=== PATIENT | male | born 1965 | race Caucasian/White ===

== ENCOUNTER 2024-05-20 10:27 | Outpatient (AMB) | payer MEDICAID, SELFPAY ==
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
== END 2024-05-20 12:20 | disposition home or self-care (01) ==
LOC: HODAHC 10:27
PROVIDERS: Supervising Provider Internal Medicine; Visit Provider Student in an Organized Health Care Education/Training Program
DX: I10 Essential (primary) hypertension (principal); Z86.73 Personal history of transient ischemic attack (TIA), and cerebral infarction without residual deficits; Z76.0 Encounter for issue of repeat prescription
CPT/HCPCS: 99212; G0463

== ENCOUNTER 2024-10-07 08:53 | Outpatient (AMB) | payer MEDICAID, SELFPAY ==
[2024-10-07 09:04] VITALS: BP 138/86; PULSE 66; RESP 18; TEMP 36.8; O2SAT 97
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
== END 2024-10-07 09:31 | disposition home or self-care (01) ==
LOC: HODAHC 08:53
PROVIDERS: Supervising Provider Internal Medicine; Visit Provider Student in an Organized Health Care Education/Training Program
DX: I10 Essential (primary) hypertension (principal); R20.0 Anesthesia of skin; Z76.0 Encounter for issue of repeat prescription; Z86.73 Personal history of transient ischemic attack (TIA), and cerebral infarction without residual deficits
CPT/HCPCS: 99213; G0463

== ENCOUNTER 2025-01-22 16:50 | Emergency (ER) | payer MEDICAID, SELFPAY ==
[2025-01-22 16:52] VITALS: BMI 33.0
--- NOTE | 2025-01-22 16:54 | EKG_ITS ---
[facility], [place] Test Date: 2025-01-22 Pat Name: WILLIAM MCCARTY Department: Room: - Gender: Male Dat Instructor: : 1965 Requested By: Darren Goldstein (CHRISTA) Order Number: [id number] Reading MD: Darren Goldstein (CHRISTA) Measurements Intervals [place] Rate: 82 P: 19 ID: [id number] QRS: -1 QRSD: 99 T: 47 QT: 358 QTc: 419 Interpretive Statements SINUS RHYTHM POSSIBLE LEFT ATRIAL ENLARGEMENT [-0.1mV P-WAVE IN V1/V2] Compared to ECG 01/28/2023 08:31:14 No significant changes /store/S0/[id number].pdf
[2025-01-22 17:00] VITALS: BP 160/90; PULSE 83; RESP 17; TEMP 37; O2SAT 98
--- NOTE | 2025-01-22 17:04 | XR_ITS ---
Examination: CT brain head without contrast. 2-D sagittal coronal reconstructions Date and time of exam:January 22, 2025, 1541 hours INDICATIONS: Left-sided headaches today CTDI: vol (mGy):55.9 DLP: (mGycm):1257 Technique: Multiple CT axial sections of the brain have been obtained, 5 mm slice thickness. Contrast has not been administered. 2-D sagittal, coronal reconstructions have been obtained Low dose protocols were performed. One or more of the following dose reduction techniques were used; automated exposure control, adjustment of the mA and/or KV according to patient size, use of iterative reconstruction technique. Findings: No significant ventricular enlargement. Intra-axial or extra-axial hemorrhage density is not seen. No mass effect or midline shift Basal cisterns are not remarkable. Fourth ventricle is midline. Cranial vault intact. Impression: Negative for acute hemorrhage, mass effect or midline shift Significant chronic left maxillary sinus disease
--- NOTE | 2025-01-22 17:05 | PD.EDRME ---
Rapid Medical Screening Exam RME Arrival date/time: 01/22/25 16:50 59-year-old male with history of stroke presents with concerns for left-sided facial pain and dental pain patient reports that he is referred pain to his head patient reports headache at this time and elevated blood pressure Chief Complaint: Dental/Oral/Throat Vital signs: Vital Signs Temperature 98.6 F 01/22/25 17:00 Pulse Rate 83 01/22/25 17:00 Respiratory Rate 17 01/22/25 17:00 Blood Pressure 160/90 H 01/22/25 17:00 Pulse Oximetry (%) 98 01/22/25 17:00 Oxygen Delivery Method Room Air 01/22/25 17:00
[2025-01-22 17:09] VITALS: BMI 33.3
[2025-01-22 17:30] LABS: Basophils # (Auto) 0.0 Thou/mm3 (0.0-0.2); Basophils % (Auto) 0 % (0-2.5); Eosinophils # (Auto) 0.1 Thou/mm3 (0.0-0.5); Eosinophils % (Auto) 1 % (0-10); Hematocrit 42.6 % (41.0-53.0); Hemoglobin 14.7 g/dL (13.5-16.0); Immature Granulocytes Auto 0.02 Thou/mm3 (0.00-0.00); Lymphocytes # (Auto) 1.6 Thou/mm3 (1.0-4.8); Lymphocytes % (Auto) 23 % (10-50); Mean Corpuscular HGB Conc 34.5 g/dl (31.0-37.0); Mean Corpuscular Hemoglobin 30.1 pg (25.0-35.0); Mean Corpuscular Volume 87 fL (80-100); Monocytes # (Auto) 0.6 Thou/mm3 (0.0-0.8); Monocytes % (Auto) 8 % (0-12); Neutrophils # (Auto) 4.6 Thou/mm3 (1.8-7.7); Neutrophils % (Auto) 67 % (37-80); Nucleated Red Blood Cell # 0.00 Thou/mm3 (0.00-0.00); Nucleated Red Blood Cell % 0 /100 WBC (0); Platelet Count 188 Thou/mm3 (140-440); RDW Standard Deviation 43.7 fL (35.1-43.9); Red Blood Count 4.89 Miln/mm3 (4.50-5.90); White Blood Count 6.8 Thou/mm3 (3.8-10.6)
[2025-01-22 17:47] LABS: INR 1.0 (0.9-1.3); Partial Thromboplastin Time 27.3 Seconds (22.0-36.0); Prothrombin Time 10.6 Seconds (9.0-12.2)
[2025-01-22 18:04] LABS: Alanine Aminotransferase 24 U/L (10-49); Albumin, Serum 4.6 gm/dL (3.4-4.8); Albumin/Globulin Ratio 1.8 (1.2-2.2); Alkaline Phosphatase 69 U/L (46-116); Anion Gap 13 (7-16); Aspartate Amino Transferase 24 U/L (0-34); BUN/Creatinine Ratio 12 Ratio (12-20); Bilirubin,Total 0.8 mg/dL (0.3-1.2); Blood Urea Nitrogen 13 mg/dL (9-23); Calcium 9.3 mg/dL (8.3-10.6); Calcium (Corrected) 9.3 mg/dL (8.5-10.1); Carbon Dioxide 21.7 mMol/L (20.0-31.0); Chloride 107 mMol/L (98-107); Creatinine (Component) 1.1 mg/dL (0.6-1.3); Estimated Creatinine Clearance 93.6 mL/min (>60); Globulin 2.5 gm/dL (2.3-3.5); Glucose 100 mg/dL (74-106); Osmolality,Calculated 283 (275-295); Potassium 3.8 mMol/L (3.4-5.1); Sodium 142 mMol/L (136-145); Total Protein 7.1 gm/dL (5.7-8.2); Troponin I < 0.020 ng/mL (0.0-0.045); eGFR > 60 See Note
--- NOTE | 2025-01-22 20:43 | PC.NURSE ---
NO ANSWER AT ER LOBBY OR OUTSIDE ER TO BE RE EVALUATED.
--- NOTE | 2025-01-22 20:50 | PC.NURSE ---
NO ANSWER AT ER LOBBY OR OUTSIDE ER TO BE RE EVALUATED.
--- NOTE | 2025-01-22 21:00 | PC.NURSE ---
NO ANSWER AT ER LOBBY OR OUTSIDE ER TO BE RE EVALUATED.
== END 2025-01-22 21:01 | disposition left against medical advice (07) ==
PROVIDERS: Nurse Practitioner Primary Care; Emergency Provider Emergency Medicine
DX: R51.9 Headache, unspecified (principal); R94.31 Abnormal electrocardiogram [ECG] [EKG]; Z53.29 Procedure and treatment not carried out because of patient's decision for other reasons
CPT/HCPCS: 36415; 70450; 80053; 84484; 85025; 85610; 85730; 93005; 99283